=== PATIENT | male | born 1985 | race Two or more races ===

== ENCOUNTER 2019-05-25 13:17 | Emergency (ER) | payer MEDICAID, OTHER ==
[~2019-05-25] VITALS: Ht 180.3 cm; Wt 86.2 kg
[~2019-05-25 13:17] MED LIST: CLON1TAB PO; ZOLP12.52 PO; [UNRECOGNIZED DRUG - OTHER] PO
[2019-05-25 13:26] VITALS: BP 135/92
[2019-05-25] MEDS ORDERED: TETANUS-DIPTH-ACEL PERTUSSIS 0.5ML SYRG IM ONE (15:45)
[2019-05-25] MEDS ORDERED: IBUPROFEN 600 MG TAB PO ONE (15:45)
[2019-05-25] MEDS ORDERED: cefTRIAXone SOD 1,000 MG VL IM ONE (15:45)
[2019-05-25] MEDS ORDERED: NEOMYCIN-BACITRACIN-POLYM 15GM TOP OINT TOP STA (16:12)
== END 2019-05-25 17:13 | disposition left against medical advice (07) ==
LOC: ER 13:17
DX: L02.512 Cutaneous abscess of left hand (principal); F17.210 Nicotine dependence, cigarettes, uncomplicated; Z59.0 Homelessness; Z79.899 Other long term (current) drug therapy
CPT/HCPCS: 26010; 90471; 90715; 96372; 99283; J0696

== ENCOUNTER 2020-02-11 20:48 | Emergency (ER) | payer OTHER ==
[~2020-02-11] VITALS: Ht 172.7 cm; Wt 72.6 kg
[2020-02-11 23:25] LABS: Basophils # (auto) 0 10 ^3/uL (0-0.2); Basophils % (auto) 0.3 % (0.0-2.0); Eosinophils # (auto) 0 10 ^3/uL (0-0.8); Eosinophils % (auto) 0.2 % (0.0-7.0); Hematocrit 38.9 % (41.0-53.0); Lymphocytes # (auto) 2.3 10 ^3/uL (0.4-5.4); Lymphocytes % (auto) 17.3 % (10.0-50.0); Mean Corpuscular Hemoglobin 30.6 pg (28.0-32.0); Mean Corpuscular Hgb Conc. 33.5 g/dL (32.0-36.0); Mean Corpuscular Volume 91.4 fL (80.0-100.0); Monocytes # (auto) 1.1 10 ^3/uL (0-1.3); Monocytes % (auto) 8.5 % (0.0-12.0); Neutrophils # (auto) 9.9 10 ^3/uL (1.6-8.6); Neutrophils % (auto) 73.7 % (37.0-80.0); Platelet Count (auto) 299 10^3/uL (140-450); Red Blood Cells 4.25 10^6/uL (4.5-5.90); Red Cell Distribution Width 13.4 % (11.8-14.3); White Blood Cell 13.4 10^3/uL (4.4-10.8)
[2020-02-11 23:44] LABS: Albumin 3.7 g/dL (3.4-5.0); Anion Gap 7 (5-15); BUN/Creatinine Ratio 10.6; Blood Alcohol < 3.0 mg/dL (0-5); Blood Urea Nitrogen 13 mg/dL (7-18); Calcium 8.6 mg/dL (8.5-10.1); Carbon Dioxide 28 mmol/L (21-32); Chloride 104 mmol/L (98-107); GFR African American 87 mL/min; GFR Non-African American 72 mL/min; Glucose 92 mg/dL (74-106); Sodium 139 mmol/L (136-145)
[2020-02-11 23:47] LABS: Alanine Aminotransferase 29 U/L (16-61); Alkaline Phosphatase 89 U/L (45-117); Aspartate Aminotransferase 55 U/L (15-37); Bilirubin, Total 0.7 mg/dL (0.2-1.0); Total Protein 7.2 g/dL (6.4-8.2)
[2020-02-11 23:48] LABS: Potassium 2.9 mmol/L (3.5-5.1)
[2020-02-12] MEDS ORDERED: POTASSIUM EFFERVESENT TAB 25 MEQ PO ONE (02:15)
[2020-02-12] MEDS ORDERED: ONDANSETRON HCL 4 MG/2 ML VIAL IV ONE (02:15)
[2020-02-12] MEDS ORDERED: SODIUM CHLORIDE 0.9% 1,000 ML IV ONE (02:15)
[2020-02-12 09:27] VITALS: BP 112/85
--- NOTE | 2020-02-12 09:45 | NUR ---
Patient was discharged prior to assessment.
== END 2020-02-12 09:26 | disposition still patient (30) ==
LOC: EDBD 20:48 → MERGE 20:48 → ER 20:48
DX: G92 Toxic encephalopathy (principal); E87.6 Hypokalemia; F19.10 Other psychoactive substance abuse, uncomplicated
CPT/HCPCS: 36415; 70450; 80053; 80320; 84132; 85025; 96361; 96374

== ENCOUNTER 2020-02-13 20:49 | Emergency (ER) | payer OTHER ==
[~2020-02-13] VITALS: Ht 175.3 cm; Wt 68.0 kg
[2020-02-13 21:57] LABS: Basophils # (auto) 0 10 ^3/uL (0-0.2); Basophils % (auto) 0.6 % (0.0-2.0); Eosinophils # (auto) 0.1 10 ^3/uL (0-0.8); Eosinophils % (auto) 1.1 % (0.0-7.0); Hematocrit 36.1 % (41.0-53.0); Lymphocytes # (auto) 2.3 10 ^3/uL (0.4-5.4); Lymphocytes % (auto) 28.4 % (10.0-50.0); Mean Corpuscular Hemoglobin 30.8 pg (28.0-32.0); Mean Corpuscular Hgb Conc. 33.4 g/dL (32.0-36.0); Mean Corpuscular Volume 92.3 fL (80.0-100.0); Monocytes # (auto) 0.9 10 ^3/uL (0-1.3); Monocytes % (auto) 11.2 % (0.0-12.0); Neutrophils # (auto) 4.7 10 ^3/uL (1.6-8.6); Neutrophils % (auto) 58.7 % (37.0-80.0); Nucleated Red Blood Cells % 0.1 %; Platelet Count (auto) 283 10^3/uL (140-450); Red Blood Cells 3.91 10^6/uL (4.5-5.90); Red Cell Distribution Width 13.3 % (11.8-14.3); White Blood Cell 8.1 10^3/uL (4.4-10.8)
[2020-02-13 22:13] LABS: Potassium 3.4 mmol/L (3.5-5.1)
[2020-02-13 22:17] LABS: Acetaminophen < 2.0 ug/mL (10-30); Albumin 3.3 g/dL (3.4-5.0); BUN/Creatinine Ratio 9.4; Calcium 8.7 mg/dL (8.5-10.1); Salicylate 4.2 mg/dL (2.8-20.0)
[2020-02-13 22:20] LABS: Bilirubin, Total 0.3 mg/dL (0.2-1.0); Total Protein 6.8 g/dL (6.4-8.2)
[2020-02-13 22:57] LABS: Amphetamine Screen, Urine POSITIVE (NEGATIVE); Barbiturate Scree,Urine NEGATIVE (NEGATIVE); Benzodiazephine Screen, Urine NEGATIVE (NEGATIVE); Cannabinoid Screen, Urine POSITIVE (NEGATIVE); Cocaine Screen, Urine NEGATIVE (NEGATIVE); Opiate Scree,Urine NEGATIVE (NEGATIVE); Phencyclidine Screen, Urine NEGATIVE (NEGATIVE)
[2020-02-13 23:12] LABS: Urine Bacteria FEW /hpf (None Seen); Urine Blood Negative /uL (Negative); Urine Specific Gravity 1.003 (1.001-1.035); Urine WBC <1 /hpf (0 - 3)
[2020-02-13] MEDS ORDERED: ONDANSETRON HCL 4 MG/2 ML VIAL IV ONE (23:15)
[2020-02-13] MEDS ORDERED: NALOXONE HCL 0.4 MG/ML VIAL IV ONE (23:15)
[2020-02-13] MEDS ORDERED: FOLIC ACID 1 MG, MULTIPLE VITAMIN 10 ML, MAGNESIUM SULF SDV 50% 8 MEQ, THIAMINE INJ 100... INJ SCH ×5 (23:30)
[2020-02-13] MEDS ORDERED: SODIUM CHLORIDE 0.9% 2,000 ML IV ONE (23:30)
[2020-02-13] MEDS ORDERED: MVI in SODIUM CHLORIDE 0.9% 1,010 ML ONE (23:51)
[2020-02-13] MEDS ORDERED: THIAMINE 100mg/ml INJ (200mg/2ml VIAL) ONE (23:51)
[2020-02-14 02:00] VITALS: BP 109/69
== END 2020-02-14 06:05 | disposition home or self-care (01) ==
LOC: ER 20:49 → EDBD 20:49 → MERGE 20:49 → ER 02-14 06:05
DX: T40.1X1A Poisoning by heroin, accidental (unintentional), initial encounter (principal); T40.601A Poisoning by unspecified narcotics, accidental (unintentional), initial encounter; R41.82 Altered mental status, unspecified; F19.10 Other psychoactive substance abuse, uncomplicated; F17.210 Nicotine dependence, cigarettes, uncomplicated; F15.10 Other stimulant abuse, uncomplicated; Z59.0 Homelessness; Y92.9 Unspecified place or not applicable
CPT/HCPCS: 36415; 80053; 80307; 80320; 80329; 81001; 85025; 93005; 96365; 96366; 96375; 99284; J2310; J2405; J3411; J3475; J7030

== ENCOUNTER 2020-03-11 22:49 | Emergency (ER) | payer OTHER ==
[~2020-03-11] VITALS: Ht 172.7 cm; Wt 81.6 kg
[2020-03-11 23:15] VITALS: BP 116/81
== END 2020-03-12 00:15 | disposition home or self-care (01) ==
LOC: ER 22:50
DX: F20.9 Schizophrenia, unspecified (principal); F19.10 Other psychoactive substance abuse, uncomplicated; Z76.0 Encounter for issue of repeat prescription

== ENCOUNTER 2020-10-29 08:47 | Emergency (ER) | payer SELFPAY ==
[~2020-10-29] VITALS: Ht 180.3 cm; Wt 84.8 kg
[2020-10-29] MEDS ORDERED: CLINDAMYCIN 600MG IV 50 ML IV ONE (09:15)
[2020-10-29] MEDS ORDERED: cefTRIAXone 1GM/50ML D5W 50 ML IV ONE (09:15)
[2020-10-29] MEDS ORDERED: SODIUM CHLORIDE 0.9% 1,000 ML IV ONE (09:15)
[2020-10-29 10:00] VITALS: BP 123/91
[2020-10-29 10:05] LABS: Basophils # (auto) 0 10 ^3/uL (0-0.2); Basophils % (auto) 0.4 % (0.0-2.0); Eosinophils # (auto) 0.1 10 ^3/uL (0-0.8); Eosinophils % (auto) 1.1 % (0.0-7.0); Hematocrit 37.5 % (41.0-53.0); Hemoglobin 12.9 g/dL (13.5-17.5); Lymphocytes # (auto) 1.5 10 ^3/uL (0.4-5.4); Lymphocytes % (auto) 14.1 % (10.0-50.0); Mean Corpuscular Hgb Conc. 34.3 g/dL (32.0-36.0); Mean Corpuscular Volume 90.4 fL (80.0-100.0); Monocytes # (auto) 1.2 10 ^3/uL (0-1.3); Neutrophils # (auto) 8.1 10 ^3/uL (1.6-8.6); Neutrophils % (auto) 73.4 % (37.0-80.0); Red Blood Cells 4.15 10^6/uL (4.5-5.90)
[2020-10-29 10:26] LABS: Albumin 3.3 g/dL (3.4-5.0); Calcium 8.5 mg/dL (8.5-10.1); Potassium 3.7 mmol/L (3.5-5.1)
[2020-10-29 10:30] LABS: BUN/Creatinine Ratio 16.4; Bilirubin, Total 0.5 mg/dL (0.2-1.0); Total Protein 7.2 g/dL (6.4-8.2)
== END 2020-10-29 12:14 | disposition home or self-care (01) ==
LOC: ER 08:47
DX: L03.116 Cellulitis of left lower limb (principal); E11.9 Type 2 diabetes mellitus without complications; F20.9 Schizophrenia, unspecified; F17.210 Nicotine dependence, cigarettes, uncomplicated; Z79.899 Other long term (current) drug therapy; Z59.0 Homelessness
CPT/HCPCS: 36415; 73700; 80053; 83605; 85025; 87040; 96365; 96366; 96368; 99284; J0696; J3490

== ENCOUNTER 2022-05-02 01:27 | Emergency (ER) | payer MEDICAID | END 2022-05-02 02:30 | disposition left against medical advice (07) | LOC: ER 01:27 | DX: F91.9 Conduct disorder, unspecified (principal); Z76.0 Encounter for issue of repeat prescription; Z53.21 Procedure and treatment not carried out due to patient leaving prior to being seen by health care provider ==

== ENCOUNTER 2022-06-10 00:10 | Emergency (ER) | payer MEDICAID ==
[~2022-06-10] VITALS: Ht 177.8 cm; Wt 82.7 kg
[2022-06-10] MEDS ORDERED: risperiDONE 1 MG TAB PO ONE (00:45)
[2022-06-10 01:15] LABS: Basophils # (auto) 0.1 10 ^3/uL (0-0.2); Basophils % (auto) 0.7 % (0.0-2.0); Eosinophils # (auto) 0.1 10 ^3/uL (0-0.8); Eosinophils % (auto) 0.7 % (0.0-7.0); Hematocrit 41.6 % (41.0-53.0); Lymphocytes # (auto) 1.8 10 ^3/uL (0.4-5.4); Lymphocytes % (auto) 17.7 % (10.0-50.0); Mean Corpuscular Hemoglobin 30.4 pg (28.0-32.0); Mean Corpuscular Hgb Conc. 33.6 g/dL (32.0-36.0); Mean Corpuscular Volume 90.7 fL (80.0-100.0); Monocytes # (auto) 1.3 10 ^3/uL (0-1.3); Monocytes % (auto) 13.2 % (0.0-12.0); Neutrophils # (auto) 6.8 10 ^3/uL (1.6-8.6); Neutrophils % (auto) 67.7 % (37.0-80.0); Nucleated Red Blood Cells % 0.1 %; Red Blood Cells 4.59 10^6/uL (4.5-5.90); Red Cell Distribution Width 12.8 % (11.8-14.3); White Blood Cell 10.1 10^3/uL (4.4-10.8)
[2022-06-10 01:33] LABS: Acetaminophen < 2.0 ug/mL (10-30); Albumin 3.4 g/dL (3.4-5.0); BUN/Creatinine Ratio 19.8; Calcium 8.8 mg/dL (8.5-10.1); Salicylate < 1.7 mg/dL (2.8-20.0)
[2022-06-10 01:36] LABS: Bilirubin, Total 0.4 mg/dL (0.2-1.0); Total Protein 7.2 g/dL (6.4-8.2)
[2022-06-10 08:24] VITALS: BP 138/74
[2022-06-10 09:33] LABS: Urine Amorphous Crystal FEW /hpf (None Seen); Urine Bacteria FEW /hpf (None Seen); Urine Blood Negative /uL (Negative); Urine Specific Gravity 1.024 (1.001-1.035); Urine WBC 8 /hpf (0 - 3)
[2022-06-10 09:38] LABS: Alcohol, Urine < 3.0 mg/dL (0-10); Amphetamine Screen, Urine POSITIVE (NEGATIVE); Barbiturate Scree,Urine NEGATIVE (NEGATIVE); Benzodiazephine Screen, Urine NEGATIVE (NEGATIVE); Cannabinoid Screen, Urine POSITIVE (NEGATIVE); Cocaine Screen, Urine NEGATIVE (NEGATIVE); Opiate Scree,Urine NEGATIVE (NEGATIVE); Phencyclidine Screen, Urine NEGATIVE (NEGATIVE)
[2022-06-10] MEDS ORDERED: RIS1T PO (12:18)
== END 2022-06-10 12:54 | disposition home or self-care (01) ==
LOC: ER 00:10 → EDBD 00:10 → ER 12:50
DX: R45.851 Suicidal ideations (principal); F31.9 Bipolar disorder, unspecified; F20.9 Schizophrenia, unspecified; E11.9 Type 2 diabetes mellitus without complications; F17.210 Nicotine dependence, cigarettes, uncomplicated; F12.10 Cannabis abuse, uncomplicated; F15.10 Other stimulant abuse, uncomplicated; Z59.00 Homelessness unspecified
CPT/HCPCS: 36415; 80053; 80307; 80320; 80329; 81001; 85025

== ENCOUNTER 2022-09-02 22:54 | Emergency (ER) | payer MEDICAID ==
[~2022-09-02] VITALS: Ht 167.6 cm; Wt 70.0 kg
[~2022-09-02 22:54] MED LIST changes: +RIS1T PO
[2022-09-03] MEDS ORDERED: ACETAMINOPHEN 500 MG TAB PO ONE (00:45)
[2022-09-03 06:14] VITALS: BP 132/81
== END 2022-09-03 06:21 | disposition home or self-care (01) ==
LOC: ER 22:54 → EDBD 22:54 → ER 09-03 06:18
DX: G89.29 Other chronic pain (principal); M25.552 Pain in left hip; F17.210 Nicotine dependence, cigarettes, uncomplicated; F12.10 Cannabis abuse, uncomplicated; F15.10 Other stimulant abuse, uncomplicated; E11.9 Type 2 diabetes mellitus without complications; Z59.00 Homelessness unspecified
CPT/HCPCS: 73501

== ENCOUNTER 2022-11-12 21:58 | Emergency (ER) | payer SELFPAY ==
[~2022-11-12] VITALS: Ht 180.3 cm; Wt 68.2 kg
[2022-11-12 22:05] VITALS: BP 138/89
== END 2022-11-13 01:00 | disposition left against medical advice (07) ==
LOC: EDBD 21:58 → ER 22:04
DX: M79.10 Myalgia, unspecified site (principal); Z53.21 Procedure and treatment not carried out due to patient leaving prior to being seen by health care provider

== ENCOUNTER 2022-12-08 18:49 | Emergency (ER) | payer SELFPAY ==
[~2022-12-08] VITALS: Ht 177.8 cm; Wt 62.9 kg
[2022-12-08 20:25] LABS: Basophils # (auto) 0 10 ^3/uL (0-0.2); Basophils % (auto) 0.4 % (0.0-2.0); Eosinophils # (auto) 0 10 ^3/uL (0-0.8); Eosinophils % (auto) 0.3 % (0.0-7.0); Hematocrit 43.4 % (41.0-53.0); Hemoglobin 14.6 g/dL (13.5-17.5); Lymphocytes # (auto) 1.9 10 ^3/uL (0.4-5.4); Lymphocytes % (auto) 15.2 % (10.0-50.0); Mean Corpuscular Hemoglobin 30.6 pg (28.0-32.0); Mean Corpuscular Hgb Conc. 33.6 g/dL (32.0-36.0); Mean Corpuscular Volume 90.9 fL (80.0-100.0); Monocytes # (auto) 0.9 10 ^3/uL (0-1.3); Monocytes % (auto) 7.1 % (0.0-12.0); Neutrophils # (auto) 9.5 10 ^3/uL (1.6-8.6); Red Blood Cells 4.78 10^6/uL (4.5-5.90); Red Cell Distribution Width 14.1 % (11.8-14.3); White Blood Cell 12.4 10^3/uL (4.4-10.8)
[2022-12-08 20:55] LABS: Albumin 3.8 g/dL (3.4-5.0); Anion Gap 6 (5-15); Blood Alcohol < 3.0 mg/dL (0-5); Blood Urea Nitrogen 13 mg/dL (7-18); Calcium 8.8 mg/dL (8.5-10.1); Carbon Dioxide 29 mmol/L (21-32); Chloride 106 mmol/L (98-107); Glucose 90 mg/dL (74-106); Potassium 4.1 mmol/L (3.5-5.1); Sodium 141 mmol/L (136-145)
[2022-12-08 20:57] LABS: Salicylate < 1.7 mg/dL (2.8-20.0)
[2022-12-08 20:59] LABS: Alanine Aminotransferase 37 U/L (16-61); Alkaline Phosphatase 104 U/L (45-117); Aspartate Aminotransferase 19 U/L (15-37); BUN/Creatinine Ratio 15.3 (10.0-20.0); Bilirubin, Total 0.2 mg/dL (0.2-1.0); GFR African American 131 mL/min; GFR Non-African American 108 mL/min; Total Protein 7.7 g/dL (6.4-8.2)
[2022-12-08 21:43] LABS: Urine Bacteria NONE SEEN /hpf (None Seen); Urine Blood 3+ /uL (Negative); Urine Specific Gravity 1.023 (1.001-1.035); Urine WBC 3 /hpf (0 - 3)
[2022-12-08 21:51] LABS: Acetaminophen < 2.0 ug/mL (10-30)
[2022-12-08 22:33] LABS: Alcohol, Urine < 3.0 mg/dL (0-10); Amphetamine Screen, Urine POSITIVE (NEGATIVE); Barbiturate Scree,Urine NEGATIVE (NEGATIVE); Benzodiazephine Screen, Urine NEGATIVE (NEGATIVE); Cannabinoid Screen, Urine NEGATIVE (NEGATIVE); Cocaine Screen, Urine NEGATIVE (NEGATIVE); Opiate Scree,Urine NEGATIVE (NEGATIVE); Phencyclidine Screen, Urine NEGATIVE (NEGATIVE)
[2022-12-09] MEDS ORDERED: LORazepam 2MG/ML-1ML VIAL IM ONE (03:00)
[2022-12-09] MEDS: risperiDONE 1 MG TAB PO SCH ×2 (12:30→22:00)
[2022-12-10] MEDS: risperiDONE 1 MG TAB PO SCH ×3 (05:38→21:39)
[2022-12-11] MEDS: risperiDONE 1 MG TAB PO SCH ×2 (10:10→22:00)
[2022-12-11] MEDS ORDERED: LORazepam 0.5 MG TAB PO ONE (22:45)
[2022-12-12] MEDS ORDERED: diphenhdrAMINE HCL 50 MG/1 ML VL IM ONE (01:30)
[2022-12-12] MEDS ORDERED: HALOPERIDOL LACTATE 5 MG/ML INJ VIAL IM ONE (01:30)
[2022-12-12 04:44] VITALS: BP 121/76
[2022-12-12] MEDS: risperiDONE 1 MG TAB PO SCH (11:12)
== END 2022-12-12 13:51 | disposition left against medical advice (07) ==
LOC: ER 18:57
DX: S61.511A Laceration without foreign body of right wrist, initial encounter (principal); R45.851 Suicidal ideations; F31.9 Bipolar disorder, unspecified; F15.10 Other stimulant abuse, uncomplicated; E11.9 Type 2 diabetes mellitus without complications; F20.9 Schizophrenia, unspecified; F17.210 Nicotine dependence, cigarettes, uncomplicated; F12.90 Cannabis use, unspecified, uncomplicated; Z79.899 Other long term (current) drug therapy; X78.8XXA Intentional self-harm by other sharp object, initial encounter; Y93.89 Activity, other specified; Y92.89 Other specified places as the place of occurrence of the external cause; Y99.8 Other external cause status
CPT/HCPCS: 12002; 36415; 80053; 80307; 80320; 80329; 81001; 85025; 96372; 99285; J2060

== ENCOUNTER 2024-12-17 12:56 | Emergency (ER) | payer MEDICAID, OTHER ==
[~2024-12-17 12:56] MED LIST changes: +CLON-1004 PO; -CLON1TAB PO
--- NOTE | 2024-12-17 13:33 | ED.PDOC ---
Altered Mental Status HPI Comments 38 y/o M, with unknown medical history presents to the ED for CC of ALOC. Per [facility] staff, patient ambulated to ER registration window stating "Med Refill" with no other context. At this time patient is A&Ox0, when asked for his name and date of patient was only able to write his No other symptoms or m odifiers are obtainable at this time. Chief Complaint: ETOH Time Seen by MD: 13:20 Reviewed Notes: Nurses Notes, Medications, Allergies Allergies: Coded Allergies: UNOBTAINABLE (Unverified , 12/17/24) Information Source: Emergency Med Personnel ([facility] STAFF) Mode of Arrival: Ambulatory Severity: Moderate Timing: Minutes Duration: Since onset Prehospital treatment: None Quality: None History of: None Associated Signs and Symptoms: None Past Medical History PAST MEDICAL HISTORY: Unobtainable Surgical History: Unobtainable Family History Family History: Unobtainable Social History Smoker: Unobtainable Alcohol: Unobtainable Drugs: Unobtainable Lives In: Unobtainable Unable to Obtain due to: Altered Mental Status All Other Systems: Reviewed and Negative Physical Exam General Appearance: Moderate Distress HEENT: Normal ENT Inspection, Pharynx Normal, TMs Normal Neck: Full Range of Motion, Non-Tender, Normal, Normal Inspection Respiratory: Chest Non-Tender, Lungs Clear, No Accessory Muscle Use, No Respiratory Distress, Normal Breath Sounds Cardiovascular: No Edema, No JVD, No Murmur, No Gallop, Normal Peripheral Pulses, Regular Rate/Rhythm Breast Exam: Deferred Gastrointestinal: No Organomegaly, Non Tender, No Pulsatile Mass, Normal Bowel Sounds, Soft Genitalia: Deferred Pelvic: Deferred Rectal: Deferred Extremities: No calf tenderness, Normal capillary refill, Normal inspection, Normal range of motion, Non-tender, No pedal edema Musculoskeletal : Apperance: Normal Neurologic: Alert, cash applications representative II-XII nml as Tested, No Motor Deficits, Normal Affect, Normal Mood, No Sensory Deficits Cerebellar Function: Normal Reflexes: Normal Skin: Dry, Normal Color, Warm Peripheral Pulses: 3+ Radial (R), 3+ Radial (L) Lymphatic: No Adenopathy Was a procedure done? Was a procedure done?: No Differential Diagnosis (ALOC) Differential Diagnosis: Dehydration, Encephalopathy, Drug Overdose, ETOH Intoxication X-Ray, Labs, Meds, VS Vital Signs Date Time Temp Pulse Resp B/P (MAP) Pulse Ox O2 Delivery O2 Flow Rate FiO2 12/17/24 14:01 80 25 96/48 (64) 93 12/17/24 14:00 Room Air* 0 21 12/17/24 13:30 98.0 86 20 110/66 (81) 95 98.0 12/17/24 13:17 98.0 86 20 110/66 (81) 95 98.0 Lab Test 12/17/24 15:00 12/17/24 13:39 Range/Units Urine Opiates Screen Pending Urine Fentanyl Screen Pending Urine Barbiturates Screen Pending Urine Phencyclidine Screen Pending Urine Amphetamines Screen Pending Urine Benzodiazepines Screen Pending Urine Cocaine Screen Pending Urine Cannabinoids Screen Pending White Blood Count 8.9 4.4-10.8 10^3/uL Red Blood Count 4.53 4.5-5.90 10^6/uL Hemoglobin 14.4 13.5-17.5 g/dL Hematocrit 41.9 41.0-53.0 % Mean Corpuscular Volume 92.6 80.0-100.0 fL Mean Corpuscular Hemoglobin 31.8 28.0-32.0 pg Mean Corpuscular Hemoglobin Concent 34.3 32.0-36.0 g/dL Red Cell Distribution Width 12.7 11.8-14.3 % Platelet Count 256 140-450 10^3/uL Mean Platelet Volume 6.8 L 6.9-10.8 fL Neutrophils (%) (Auto) 58.5 37.0-80.0 % Lymphocytes (%) (Auto) 30.6 10.0-50.0 % Monocytes (%) (Auto) 8.9 0.0-12.0 % Eosinophils (%) (Auto) 1.5 0.0-7.0 % Basophils (%) (Auto) 0.5 0.0-2.0 % Neutrophils # (Auto) 5.2 1.6-8.6 10 ^3/uL Lymphocytes # (Auto) 2.7 0.4-5.4 10 ^3/uL Monocytes # (Auto) 0.8 0-1.3 10 ^3/uL Eosinophils # (Auto) 0.1 0-0.8 10 ^3/uL Basophils # (Auto) 0 0-0.2 10 ^3/uL Nucleated Red Blood Cells 0.0 % Plasma/Serum Blood Alcohol 229.0 H <10 mg/dL Current Medications Medications (Trade) Dose Ordered Sig/Felicia Route Start Time Stop Time Status Last Admin Sodium Chloride 1,000 ml @ 1,000 mls/hr Q1H ONCE IVB 12/17/24 13:30 12/17/24 14:29 DC 12/17/24 13:42 Sodium Chloride 1,000 ml @ 30 mls/hr Q24H ONCE IV 12/17/24 13:30 12/18/24 13:29 12/17/24 14:50 [place] [id number] Ph: [phone] DIAGNOSTIC IMAGING Diagnostic Imaging Report : [id number] Signed PATIENT: BENJAMIN TERRY ACCT: [id number] UNIT: [id number] : 03/29/1986 LOC: ER ROOM / BED: / AGE / SEX: 38 / M ADM STATUS: REG ER SERVICE 1322 ORDERING PHYSICIAN: ESCOBAR COHN MD PROCEDURE(s): CXRP - CHEST PORTABLE REASON: sob ORDER NUMBER(s): [id number], ACCESSION NUMBER(s): [id number] CHEST RADIOGRAPH Indication: sob Technique: Single frontal view of the chest was obtained COMPARISON: None FINDINGS: Lines and Tubes: None Lungs: Clear Pleura: No effusion. No pneumothorax. Cardiomediastinal contours: Unremarkable Bones: Unremarkable IMPRESSION: No acute disease. ATED BY: FRANCISCO J MARTINEZ MD DICTATED DATE/TIME: 12/17/241419 SIGNED BY: FRANCISCO J MARTINEZ MD SIGNED DATE/TIME: 12/17/24 142 CC: Patient alert. No sign of any injuries. He does use drugs. Vitals stable. Chest x-ray reviewed does not show any acute changes. Establish intravenous access. Was given fluids. Blood alcohol level elevated. Was given thiamine. Counseled patient on effects of drinking for 15 minutes. WBC within normal limits. Hemoglobin within normal limits. Denies suicidal homicidal ideation. Explained to the patient. Was told to follow up with his primary care physician. Was told to come back if there is any problem. Time of 1ST Reevaluation: 13:50 Reevaluation 1ST: Unchanged Patient Education/Counseling: Diagnosis, Treatment Family Education/Counseling: Diagnosis, Treatment SEPSIS Sepsis Screen Date sepsis recognized/suspect: Dec 17, 2024 Time Sepsis recognized/suspect: 1318 Recent Procedure: No On Antibiotic Therapy: No Respiratory Rate >20: No Heart Rate >90: No Temp<36 C (96.8 F) or >38.3 C: No SBP <90 or MAP <65 mmHG: No New Acute Mental Status Change: No Is the patient on CPAP, BIPAP,: No Physician Orders Drug Screen (12/17/24 13:22) Chest Portable (12/17/24 13:22) Sodium Chloride 0.9% (12/17/24 13:30) Vital Signs Date Time Temp Pulse Resp B/P (MAP) Pulse Ox O2 Delivery O2 Flow Rate FiO2 12/17/24 14:01 80 25 96/48 (64) 93 12/17/24 14:00 Room Air* 0 21 12/17/24 13:30 98.0 86 20 110/66 (81) 95 98.0 12/17/24 13:17 98.0 86 20 110/66 (81) 95 98.0 Laboratory Tests Test 12/17/24 13:39 White Blood Count 8.9 10^3/uL (4.4-10.8) Medications Medications Dose Ordered Sig/Felicia Route Start Time Stop Time Status Last Admin Dose Admin Sodium Chloride 1,000 ml @ 30 mls/hr Q24H ONCE IV 12/17/24 13:30 12/18/24 13:29 12/17/24 14:50 Sodium Chloride 1,000 ml @ 1,000 mls/hr Q1H ONCE IVB 12/17/24 13:30 12/17/24 14:29 DC 12/17/24 13:42 Departure 1 Departure Time of Disposition: 15:31 Impression: Primary Impression: Alcohol abuse Disposition: 01 HOME / SELF CARE / HOMELESS Condition: Good Discharged With: Self Critical Care Note Critical Care Time?: No Stability Stability form required: No Heart Score Heart Score: Heart Score Response (Comments) Value History N/A 0 EKG N/A 0 Age N/A 0 Risk Factors N/A 0 Troponin N/A 0 Total 0 I personally scribed for ESCOBAR COHN MD ([email or web address]) on 12/17/24 at 13:33. Electronically submitted by Valery Oates ([email or web address]). I personally scribed for ESCOBAR COHN MD ([email or web address]) on 12/17/24 at 15:19. Electronically submitted by Valery Oates ([email or web address]). ESCOBAR COHN MD Dec 17, 2024 13:33
[2024-12-17] MEDS: SODIUM CHLORIDE 0.9% 1,000 ML IVB ONE (13:42)
[2024-12-17 13:51] LABS: Basophils # (auto) 0 10 ^3/uL (0-0.2); Basophils % (auto) 0.5 % (0.0-2.0); Eosinophils # (auto) 0.1 10 ^3/uL (0-0.8); Eosinophils % (auto) 1.5 % (0.0-7.0); Hematocrit 41.9 % (41.0-53.0); Hemoglobin 14.4 g/dL (13.5-17.5); Lymphocytes # (auto) 2.7 10 ^3/uL (0.4-5.4); Lymphocytes % (auto) 30.6 % (10.0-50.0); Mean Corpuscular Hemoglobin 31.8 pg (28.0-32.0); Mean Corpuscular Hgb Conc. 34.3 g/dL (32.0-36.0); Mean Corpuscular Volume 92.6 fL (80.0-100.0); Monocytes # (auto) 0.8 10 ^3/uL (0-1.3); Monocytes % (auto) 8.9 % (0.0-12.0); Neutrophils # (auto) 5.2 10 ^3/uL (1.6-8.6); Neutrophils % (auto) 58.5 % (37.0-80.0); Platelet Count (auto) 256 10^3/uL (140-450); Red Blood Cells 4.53 10^6/uL (4.5-5.90); Red Cell Distribution Width 12.7 % (11.8-14.3); White Blood Cell 8.9 10^3/uL (4.4-10.8)
--- NOTE | 2024-12-17 14:22 | DVH ---
CHEST RADIOGRAPH Indication: sob Technique: Single frontal view of the chest was obtained COMPARISON: None FINDINGS: Lines and Tubes: None Lungs: Clear Pleura: No effusion. No pneumothorax. Cardiomediastinal contours: Unremarkable Bones: Unremarkable IMPRESSION: No acute disease.
[2024-12-17] MEDS: SODIUM CHLORIDE 0.9% 1,000 ML IV ONE (14:50)
[2024-12-17] MEDS: THIAMINE 100mg/ml INJ (200mg/2ml VIAL) IV ONE (15:59)
[2024-12-17 16:42] LABS: Cannabinoid Screen, Urine Neg (NEGATIVE)
[2024-12-17 16:43] LABS: Amphetamine Screen, Urine Pos (NEGATIVE); Barbiturate Scree,Urine Neg (NEGATIVE); Benzodiazephine Screen, Urine Neg (NEGATIVE); Cocaine Screen, Urine Neg (NEGATIVE); Opiate Scree,Urine Neg (NEGATIVE); Phencyclidine Screen, Urine Neg (NEGATIVE)
[2024-12-17 23:30] VITALS: BP 119/80; PULSE 88; RESP 23; TEMP 98; O2SAT 99
[2024-12-18] MEDS ORDERED: CEPH500C PO (12:21)
== END 2024-12-17 23:53 | disposition home or self-care (01) ==
LOC: ER 12:56 → EDBD 12:56 → EDUNIT# 12:56 → ER 23:53
DX: F10.10 Alcohol abuse, uncomplicated (principal); Z79.899 Other long term (current) drug therapy; Y90.7 Blood alcohol level of 200-239 mg/100 ml
CPT/HCPCS: 36415; 71045; 80307; 80320; 82947; 85025; 96361; 96374; 99285; J3411; J7030; 96360

== ENCOUNTER 2024-12-18 12:00 | Emergency (ER) | payer MEDICAID ==
[~2024-12-18] VITALS: Ht 180.3 cm; Wt 83.0 kg
[2024-12-18] MEDS ORDERED: CEPH500C PO (12:21)
--- NOTE | 2024-12-18 12:22 | ED.PDOC ---
Musculoskeletal HPI Comments This is a 39 year old male presenting to the ED with chief complaint of right foot pain. Patient reports that he has been experiencing right foot pain, swelling, and redness for some time. Patient was previously seen yesterday for ETOH and methamphetamine abuse. Patient denies any fever, chills, N/V/D, chest pain, or numbness. Time Seen by MD: 12:20 Reviewed Notes: Nurses Notes, Medications, Allergies Allergies: Coded Allergies: UNOBTAINABLE (Unverified , 12/17/24) Home Meds Active Scripts Cephalexin Monohydrate (Cephalexin) 500 Mg Cap, 1 CAP PO BID, #20 CAP Prov:BARTOLOME ELIAS MD 12/18/24 Information Source: Patient Mode of Arrival: Ambulatory Location: Right Extremity Location: Foot Timing: Hours Prehospital treatment: None Severity: Moderate Able to Move Extremity: Yes Bear Weight: Fully Pain: Moderate Mechanism: Spontaneous Circumstances: Spontaneous Onset of Symptoms: Spontaneous Symptoms: Pain, Erythema DVT Risk Factors: NONE Past Medical History PAST MEDICAL HISTORY: Unknown Surgical History: Unknown Family History Family History: Unknown Social History Smoker: Unknown Alcohol: Heavy Drugs: Methamphetamine Lives In: Homeless Constitutional: denies: chills, diaphoresis, fatigue, fever, malaise, sweats, weakness, others EENTM: denies: blurred vision, double vision, ear bleeding, ear discharge, ear drainage, ear pain, ear ringing, eye pain, eye redness, hearing loss, mouth pain, mouth swelling, nasal discharge, nose bleeding, nose congestion, nose pain, photophobia, tearing, throat pain, throat swelling, voice changes, others Respiratory: denies: cough, hemoptysis, orthopnea, SOB at rest, shortness of breath, SOB with excertion, stridor, wheezing, others Cardiovascular: denies: chest pain, dizzy spells, diaphoresis, Dyspnea on exertion, edema, irregular heart beat, left arm pain, lightheadedness, palpitations, PND, syncope, others Gastrointestinal: denies: abdomen distended, abdominal pain, blood streaked bowels, constipated, diarrhea, dysphagia, difficulty swallowing, hematemesis, melena, nausea, poor appetite, poor fluid intake, rectal bleeding, rectal pain, vomiting, others Genitourinary: denies: burning, dysuria, flank pain, frequency, hematuria, incontinence, penile discharge, penile sore, pain, testicle pain, testicle swelling, urgency, others Neurological: denies: dizziness, fainting, headache, left sided numbness, left sided weakness, numbness, paresthesia, pre-existing deficit, right sided numbness, right sided weakness, seizure, speech problems, tingling, tremors, weakness, others Musculoskeletal: reports: others (Rt foot pain); denies: back pain, gout, joint pain, joint swelling, muscle pain, muscle stiffness, neck pain Integumetry: denies: bruises, change in color, change in hair/nails, dryness, laceration, lesions, lumps, rash, wounds, others Allergic/Immunocompromised: denies: Difficulty Healing, Frequent Infections, Hives, Itching, others Hematologic/Lymphatic: denies: anemia, blood clots, easy bleeding, easy bruising, swollen glands, others Endocrine: denies: excessive hunger, excessive sweating, excessive thirst, excessive urination, flushing, intolerance to cold, intolerance to heat, unexplained weight gain, unexplained weight loss, others Psychiatric: denies: anxiety, bipolar disorder, depression, hopeless, panic disorder, schizophrenia, sleepless, suicidal, others All Other Systems: Reviewed and Negative Physical Exam General Appearance: No Apparent Distress, Other (The patient is somewhat disheveled with a significant odor) HEENT: Normal ENT Inspection, Pharynx Normal, TMs Normal Neck: Full Range of Motion, Non-Tender, Normal, Normal Inspection Respiratory: Chest Non-Tender, Lungs Clear, No Accessory Muscle Use, No Respiratory Distress, Normal Breath Sounds Cardiovascular: No Edema, No JVD, No Murmur, No Gallop, Normal Peripheral Pulses, Regular Rate/Rhythm Breast Exam: Deferred Gastrointestinal: No Organomegaly, Non Tender, No Pulsatile Mass, Normal Bowel Sounds, Soft Genitalia: Deferred Pelvic: Deferred Rectal: Deferred Extremities: No calf tenderness, Normal capillary refill, No pedal edema Musculoskeletal : Apperance: Normal Neurologic: Alert, insurance sales producer II-XII nml as Tested, No Motor Deficits, Normal Affect, Normal Mood, No Sensory Deficits Cerebellar Function: Normal Reflexes: Normal Skin: Dry, Normal Color, Rash (Rash to the right ankle and right foot consistent with cellulitis), Warm Lymphatic: No Adenopathy Was a procedure done? Was a procedure done?: No Differential Diagnosis EXT Differential Diagnosis: Cellulitis, Fracture, Sprain X-Ray, Labs, Meds, VS Vital Signs Date Time Temp Pulse Resp B/P (MAP) Pulse Ox O2 Delivery O2 Flow Rate FiO2 12/18/24 12:20 98.3 96 18 132/85 (101) 99 98.3 The patient is being discharged The patient was given prescription of Keflex The patient will return to the emergency department's the condition worsens. We are discharging the patient is told that we did write him a prescription of Keflex but he states that he wants to talk to social sciences research scientist because he is homeless Time of 1ST Reevaluation: 13:19 Reevaluation 1ST: Unchanged Patient Education/Counseling: Diagnosis, Treatment, Prognosis, Need For Follow Up Family Education/Counseling: No Family Present Departure 1 Departure Time of Disposition: 13:19 Impression: Primary Impression: Cellulitis of right foot Disposition: 01 HOME / SELF CARE / HOMELESS Condition: Fair e-Prescriptions Cephalexin Monohydrate (Cephalexin) 500 Mg Cap 1 CAP PO BID, #20 CAP Prov: BARTOLOME ELIAS MD 12/18/24 Discharged With: Self Critical Care Note Critical Care Time?: No Stability Stability form required: No Heart Score Heart Score: Heart Score Response (Comments) Value History N/A 0 EKG N/A 0 Age N/A 0 Risk Factors N/A 0 Troponin N/A 0 Total 0 I personally scribed for BARTOLOME ELIAS MD ([email or web address]) on 12/18/24 at 12:22. Electronically submitted by Reese Castelan ([email or web address]). BARTOLOME ELIAS MD Dec 18, 2024 12:22
[2024-12-18 13:48] VITALS: BP 132/85; PULSE 60; RESP 18; TEMP 98.3; O2SAT 96
== END 2024-12-18 13:53 | disposition home or self-care (01) ==
LOC: ER 12:00 → EDUNIT# 12:00 → ER 13:53
DX: L03.115 Cellulitis of right lower limb (principal)

== ENCOUNTER 2024-12-23 21:45 | Emergency (ER) | payer MEDICAID ==
[~2024-12-23] VITALS: Ht 177.8 cm; Wt 75.0 kg
[~2024-12-23 21:45] MED LIST changes: +CEPH500C PO
[2024-12-23 22:11] LABS: Hematocrit 42.1 % (41.0-53.0); Hemoglobin 14.2 g/dL (13.5-17.5); Mean Corpuscular Hemoglobin 31.5 pg (28.0-32.0); Mean Corpuscular Volume 93.0 fL (80.0-100.0); Nucleated Red Blood Cells % 0.0 %
[2024-12-23 22:24] LABS: Chloride 105 mmol/L (98-107); Potassium 3.8 mmol/L (3.5-5.1); Sodium 141 mmol/L (136-145)
[2024-12-23 22:25] LABS: Anion Gap 9 (5-15); Calcium 9.5 mg/dL (8.7-10.4); Carbon Dioxide 27 mmol/L (20-31)
[2024-12-23 22:30] LABS: BUN/Creatinine Ratio 12.9 (10.0-20.0); Blood Urea Nitrogen 11 mg/dL (9-23); Glucose 68 mg/dL (74-106)
[2024-12-23 22:39] LABS: Acetaminophen < 2.0 UG/ML (10.0-20.0); Salicylate < 3.0 mg/dL (-30)
--- NOTE | 2024-12-23 23:05 | ED.PDOC ---
History of Present Illness HPI Comments 39 y/o M is BIBA for mental health. Per EMS, patient called, due to pervasive thoughts on 'robots' wanting to 'kill' him. Significant history of methamphetamine and alcohol use, today. Patient is homeless. Denies any suicidal or homicidal ideations, auditory of visual hallucinations, chest pain, shortness of breath, or further associated symptoms. Chief Complaint: Mental Health Time Seen by MD: 21:40 Primary Care Provider: NONE Reviewed Notes: Nurses Notes, Medications, Allergies Allergies: Coded Allergies: NO KNOWN ALLERGIES (Unverified , 08/24/79) UNOBTAINABLE (Unverified , 12/17/24) Home Meds Active Scripts Cephalexin Monohydrate (Cephalexin) 500 Mg Cap, 1 CAP PO BID, #20 CAP Prov:BARTOLOME ELIAS MD 12/18/24 Risperidone (RisperDAL TABLET) 1 Mg Tb, 1 TAB PO QPM PRN for 10 Days, #10 TAB 1 Refill Prov:THOMPSON MAYER MD 06/10/22 Reported Medications Zolpidem Tartrate (Ambien Cr) 12.5 Mg Tab, 12.5 MG PO 09/07/10 Clonazepam (Klonopin) 1 Mg Tab, 1 MG PO 09/07/10 [Sapheris] No Conflict Check, 10 MG PO 09/07/10 Information Source: Patient, Emergency Med Personnel Mode of Arrival: EMS Severity: Moderate Timing: Hours Duration: Since onset Prehospital treatment: 12 Lead EKG, Accucheck, Sisal Operator Past Medical History PAST MEDICAL HISTORY: Denies Surgical History: Denies all surgeries Family History Family History: Unknown Social History Smoker: Non-Smoker Alcohol: Heavy Drugs: Methamphetamine Lives In: Homeless All Other Systems: Reviewed and Negative (Comprehensive systems review obtained and negative except for what is stated in the HPI.) Physical Exam General Appearance: No Apparent Distress, Normal HEENT: Normal ENT Inspection, Pharynx Normal, TMs Normal Neck: Full Range of Motion, Non-Tender, Normal, Normal Inspection Respiratory: Chest Non-Tender, Lungs Clear, No Accessory Muscle Use, No Respiratory Distress, Normal Breath Sounds Cardiovascular: No Edema, No JVD, No Murmur, No Gallop, Normal Peripheral Pulses, Regular Rate/Rhythm Breast Exam: Deferred Gastrointestinal: No Organomegaly, Non Tender, No Pulsatile Mass, Normal Bowel Sounds, Soft Genitalia: Deferred Pelvic: Deferred Rectal: Deferred Extremities: No calf tenderness, Normal capillary refill, Normal inspection, Normal range of motion, Non-tender, No pedal edema Musculoskeletal : Apperance: Normal Neurologic: Alert, igniter capper II-XII nml as Tested, No Motor Deficits, Normal Affect, Normal Mood, No Sensory Deficits Cerebellar Function: Normal Reflexes: Normal Skin: Dry, Normal Color, Warm Lymphatic: No Adenopathy Was a procedure done? Was a procedure done?: No Differential Dx Considerations may include: schizoaffective disorder, anxiety, polysubstance abuse/dependency, among others X-Ray, Labs, Meds, VS Vital Signs Date Time Temp Pulse Resp B/P (MAP) Pulse Ox O2 Delivery O2 Flow Rate FiO2 12/24/24 14:00 87 19 130/69 (89) 99 12/24/24 12:00 99 19 144/77 (99) 99 12/24/24 10:30 99 19 99 Room Air* 0 21 12/24/24 10:00 98.1 101 19 139/70 (93) 99 98.1 12/23/24 22:00 98.5 92 18 123/70 (87) 97 98.5 Lab Test 12/23/24 21:57 Range/Units White Blood Count 9.5 4.4-10.8 10^3/uL Red Blood Count 4.53 4.5-5.90 10^6/uL Hemoglobin 14.2 13.5-17.5 g/dL Hematocrit 42.1 41.0-53.0 % Mean Corpuscular Volume 93.0 80.0-100.0 fL Mean Corpuscular Hemoglobin 31.5 28.0-32.0 pg Mean Corpuscular Hemoglobin Concent 33.8 32.0-36.0 g/dL Red Cell Distribution Width 13.2 11.8-14.3 % Platelet Count 259 140-450 10^3/uL Mean Platelet Volume 6.7 L 6.9-10.8 fL Neutrophils (%) (Auto) 68.3 37.0-80.0 % Lymphocytes (%) (Auto) 17.0 10.0-50.0 % Monocytes (%) (Auto) 13.6 H 0.0-12.0 % Eosinophils (%) (Auto) 0.4 0.0-7.0 % Basophils (%) (Auto) 0.7 0.0-2.0 % Neutrophils # (Auto) 6.5 1.6-8.6 10 ^3/uL Lymphocytes # (Auto) 1.6 0.4-5.4 10 ^3/uL Monocytes # (Auto) 1.3 0-1.3 10 ^3/uL Eosinophils # (Auto) 0 0-0.8 10 ^3/uL Basophils # (Auto) 0.1 0-0.2 10 ^3/uL Nucleated Red Blood Cells 0.0 % Sodium Level 141 136-145 mmol/L Potassium Level 3.8 3.5-5.1 mmol/L Chloride Level 105 98-107 mmol/L Carbon Dioxide Level 27 20-31 mmol/L Anion Gap 9 5-15 Blood Urea Nitrogen 11 9-23 mg/dL Creatinine 0.85 0.700-1.30 mg/dL Glomerular Filtration Rate Calc 114 >90 mL/min BUN/Creatinine Ratio 12.9 10.0-20.0 Serum Glucose 68 L 74-106 mg/dL Calcium Level 9.5 8.7-10.4 mg/dL Salicylates Level < 3.0 -30 mg/dL Acetaminophen Level < 2.0 L 10.0-20.0 UG/ML Plasma/Serum Blood Alcohol 56.2 H <10 mg/dL Time of 1ST Reevaluation: 22:10 Reevaluation 1ST: Unchanged Patient Education/Counseling: Other (ED observation ) Family Education/Counseling: No Family Present Additional Information Previous visits reviewed: Dec 17, 2024 and Dec 17, 2024 encounter for alcohol abuse and cellulitis of right foot The following tests were ordered, and results were reviewed by me: UA, CBC, BMP, blood alcohol, drug screen salicylate Additional Information was gathered from interviewing the following independent historians: EMS I reviewed and agreed with the following test results read by other providers: N/A I discussed treatment and results with medical personnel and: patient SEPSIS Sepsis Screen Date sepsis recognized/suspect: Dec 23, 2024 Time Sepsis recognized/suspect: 2199 Recent Procedure: No On Antibiotic Therapy: No Respiratory Rate >20: No Heart Rate >90: Yes Temp<36 C (96.8 F) or >38.3 C: No SBP <90 or MAP <65 mmHG: No New Acute Mental Status Change: No Is the patient on CPAP, BIPAP,: No Physician Orders Soc Telemed Psych Consult (12/23/24 21:47) * Systems Protection Technician Consult (12/24/24 ) Vital Signs Date Time Temp Pulse Resp B/P (MAP) Pulse Ox O2 Delivery O2 Flow Rate FiO2 12/24/24 14:00 87 19 130/69 (89) 99 12/24/24 12:00 99 19 144/77 (99) 99 12/24/24 10:30 99 19 99 Room Air* 0 21 12/24/24 10:00 98.1 101 19 139/70 (93) 99 98.1 12/23/24 22:00 98.5 92 18 123/70 (87) 97 98.5 Laboratory Tests Test 12/23/24 21:57 White Blood Count 9.5 10^3/uL (4.4-10.8) Departure 1 Departure Time of Disposition: 18:53 (Patient with psychosis. Patient is medically cleared. Patient was evaluated by psychiatry who recommended the patient can be discharged home.) Impression: Primary Impression: Polysubstance abuse Additional Impression: Acute psychosis Disposition: 01 HOME / SELF CARE / HOMELESS Condition: Stable Critical Care Note Critical Care Time?: No Stability Stability form required: No Heart Score Heart Score: Heart Score Response (Comments) Value History N/A 0 EKG N/A 0 Age N/A 0 Risk Factors N/A 0 Troponin N/A 0 Total 0 I personally scribed for FLACA ARAUJO MD ([email or web address]) on 12/23/24 at 23:05. Electronically submitted by Mk Valderrama ([email or web address]). FLACA ARAUJO MD Dec 23, 2024 23:05
--- NOTE | 2024-12-24 01:00 | DVHINCON2 ---
Date of Service if different f: Dec 24, 2024 Time of Service: 01:00 Consult Consult Note PSYCHIATRY ED NEW CONSULT HPI: 39 yo pt with unclear PPH presents to ED BIBA for safety, psychiatric stabilization, and possible med initiation in setting of homelessness, meth/etoh use, and paranoia. Psychiatry consulted for safety evaluation and recommendations in context of current presentation Pt reports over past several days to weeks experiencing worsening paranoid ideation of "robots wanting me " and "computers have been trying to shoot me all day". Pt admits to recent heavy meth use with last use about 24 hrs ago prior to admission, also admits to intermittent ETOH use with last use several hours [employer] Currently denies depressed mood, hopelessness, helplessness, isolation, negative thoughts, or anhedonia. Denies anxiety/OCD/PTSD symptoms. Also denies AVH/catatonic/perceptual disturbances. Adamantly denies SI/HI. No overt manic, psychotic, MDD, cognitive, dissociative, panic, OCD, PTSD, or somatic symptoms noted. Denies acute psychosocial stressors although struggles with chronic homelessness and no/limited support system Does not have active outpt MH services established at this time. Currently not on any psychotropic agents,prior psych med trials include several antipsychotics but hx of med noncompliance noted Pt w/ moderate hx of ETOH/meth dependency, never IVDU, denies opiate use, never previously in any drug/etoh tx programs in past Single, no children, unemployed/ssi, chronically homeless, no/limited support system noted Unknown trauma hx. Denies FH of psych hospitalizations, suicide attempts, or completed suicides No acute medical/chronic pain issues, hx of seizures/TBI, or recent head injuries, NKDA Denies hx of SI/SIB/SA/PSG although several prior psych hospitalizations for psychosis. Denies history of violence, aggression, or assaultive behaviors. Denies recent hx of impulsivity, attention seeking behaviors, anger outbursts, emotional dysregulation, mood reactivity, or engaging in risky behaviors. Denies any legal problems. Does not have access to firearms Currently denies SI/HI/AVH. Identifies self as PPF. No acute safety concerns noted during encounter MSE: General Appearance/Behavior: Alert/awake; appears stated age, marginal/fair grooming/hygiene; calm/polite and cooperative, fair eye contact, no PMA/PMR Speech: coherent, not overly spontaneous, monotone Thought Process: L/L/concrete Thought Content: Abnormal Thoughts and Perceptions: denies dissociative symptoms Homicidality / Violent Thoughts: adamantly denies HI Suicidality: adamantly denies SI Hallucinations: denies AVTH Delusions: +PI Obsessions /compulsions: None Judgment and Insight: marginal/limited Mood & Affect: "okay" with mood-congruent, somewhat restricted/appropriate Orientation: oriented x 3 Attention/Concentration: appears intact Cognition: grossly intact Assessment: 39 yo pt with unclear PPH presents to ED BIBA for safety, psychiatric stabilization, and possible med initiation in setting of homelessness, meth/etoh use, and paranoia Currently denies SI/HI/AVH. Pt medically cleared Presenting MH symptoms/PI appear more secondary to recent moderate meth use Does not presently show any signs of immediate danger to self/others or GD that would necessitate 5150 or involuntary psych admission. However offered voluntary psych hospitalization but pt declined. Also declined further ED observation/reevaluation. No acute safety concerns noted. Acute suicide risk appears nonexistent to relatively low Pts symptoms should be managed safely in an outpatient setting - pt currently does not have psychiatrist/therapist out in community although interested in seeking MH resources prior to d/c, pt also expressed interest in housing resources prior to d/c Currently not on any psychotropics Primary Diagnosis: Psychotic disorder unspecified. Meth use disorder, moderate. ETOH use disorder, unspecified. R/o SIPD Plan: Does not warrant involuntary inpatient psychiatric hospitalization or 5150 hold No acute safety concerns Pt can be safely discharged from ED in AM s/p SW consultation One time dose of olanzapine 15 mg po now Risks/benefits/alternative treatments discussed, informed consent provided by pt Supportive tx provided, discussed safety plan with pt Emphasized LIMIT THC/EtOH intake, abstain from IDU, and social activation Encouraged mindfulness techniques (reading, walking, meditation, journaling, exercise, deep breathing) during times of stress Would benefit from establishing community MH services for psychotx/psychiatric med initiation/management please provide pt MH resources prior to discharge per pts request Recommend SW consult to assist pt with post discharge housing assistance/MH/psychiatric/Substance abuse/IOP referrals Instructed pt to call/text [phone] or return to ED if MH symptoms worsen or new onset SI/HI upon discharge Pt verbalized understanding and is receptive to above tx plan This case was discussed with ED nurse/provider and all parties in agreement with above tx plan Fritz Manning MD Plan discussed with: Patient FRITZ MANNING MD Dec 24, 2024 01:00
[2024-12-24 10:00] VITALS: TEMP 98.1
[2024-12-24 10:30] VITALS: PULSE 99; RESP 19; O2SAT 99
[2024-12-24 14:00] VITALS: BP 130/69; PULSE 87; RESP 19; O2SAT 99
== END 2024-12-24 14:52 | disposition home or self-care (01) ==
LOC: EDBD 21:45 → ER 21:45
DX: F23 Brief psychotic disorder (principal); F15.10 Other stimulant abuse, uncomplicated; Z71.82 Exercise counseling; Z59.00 Homelessness unspecified; F10.90 Alcohol use, unspecified, uncomplicated; Y90.9 Presence of alcohol in blood, level not specified
CPT/HCPCS: 36415; 80048; 80320; 80329; 85025